=== PATIENT | female | born 2000 | race Caucasian/White ===

== ENCOUNTER 2018-09-17 09:39 | Outpatient (CLI) | payer OTHER ==
--- NOTE | 2018-09-17 10:49 | ULT ---
LEFT BREAST ULTRASOUND: Date: 09/17/18 HISTORY: Palpable abnormality 12 o'clock position left breast. FINDINGS: Real-time imaging of the area of concern shows somewhat dense fibroglandular tissue without signs of any mass. IMPRESSION: Unremarkable left breast ultrasound. POS: [facility]
== END 2018-09-17 09:40 | disposition home or self-care (01) ==
LOC: BICULT 09:39
PROVIDERS: ATTEND Family Medicine
DX: N63.20 Unspecified lump in the left breast, unspecified quadrant (principal)